=== PATIENT | female | born 1955 | race Caucasian/White ===

== ENCOUNTER → 2016-09-06 | Outpatient (CLI) | payer BC | END | disposition home or self-care (01) | LOC: C.MAMM 13:46 | DX: M85.89 Other specified disorders of bone density and structure, multiple sites (principal) ==

== ENCOUNTER → 2016-09-22 | Outpatient (CLI) | payer BC ==
--- NOTE | 2016-09-22 16:59 | DIAGNOSTIC IMAGING REPORT ---
RIGHT HAND MIN 3 VIEWS ROUTINE CLINICAL HISTORY: Right hand pain. Injury. Pain at base of the third fourth and fifth metacarpophalangeal joints. COMPARISON: None FINDINGS: Alignment of the right hand is anatomic. There is no acute fracture. No osseous lesion is identified. There is mild to moderate osteoarthritis within multiple articulations of the right hand. IMPRESSION: 1. No acute fracture or dislocation of the right hand. 2. 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 Electronically signed by: Yan Love M.D. 09/22/2016 4:58 PM Dictated Date/Time: 09/22/2016 4:57 PM
== END | disposition home or self-care (01) ==
LOC: C.RAD1850 16:37
PROVIDERS: ATTEND Family Medicine
DX: S69.91XA Unspecified injury of right wrist, hand and finger(s), initial encounter (principal); X58.XXXA Exposure to other specified factors, initial encounter; M79.641 Pain in right hand

== ENCOUNTER 2025-01-16 22:02 | Inpatient (IN) ==
--- NOTE | 2025-01-16 22:59 | Emergency Department Note ---
Impression & Plan Abdominal pain Admission ED Provider Note HPI: History obtained from patient. The patient is a 69-year-old female who presents the emergency department with chief complaint of left lower quadrant abdominal pain. Patient had colonoscopy performed earlier this morning by Dr. Canas, she actually came to the ER earlier today for the symptoms, she had a CT scan done that showed possible hemoperitoneum and she was advised for admission. Patient signed out AGAINST MEDICAL ADVICE. Patient states that her symptoms persisted throughout the afternoon into the evening and therefore she came back to the ER to be assessed. Patient states that her pain is mild but just not getting any better. On arrival here to the ED the patient is hemodynamically stable, she otherwise appears to be in no acute distress on my initial assessment. Patient states she did have 1 bowel movement this afternoon but it was "watery". She states there was "some tinge of blood" in her bowel movement. Patient denies any vomiting, she denies any chest pain or shortness of breath. ROS: - Per HPI Differential Diagnosis: Perforated viscus/colon, peritonitis, intra-abdominal hemorrhage/hemoperitoneum, intra-abdominal abscess, diverticulitis flare, amongst other potential pathologies. *Outpatient medications and allergy history reviewed. PE: General: Alert HEENT: Normocephalic, trachea midline Eyes: Extraocular eye movement is intact, no scleral erythema Pulmonary: Clear to auscultation bilaterally, no wheezing Cardio: Regular rate and rhythm GI: Abdomen is soft to palpation, there is tenderness to palpation in the left lower quadrant without rigidity : No suprapubic tenderness MSK: No evidence of trauma or malformation of the extremities, no edema Skin: No evidence of rash Neuro: Alert, no focal deficits Psychiatric: Cooperative INDEPENDENT INTERPRETATIONS: library monitor: (As interpreted by myself): - An order was placed for continuous cardiac monitoring - Patient was noted to be in sinus rhythm with a rate of 70 Interventions provided in ED: - IV fluid bolus, p.o. Tylenol, IV Zosyn Medical Decision Making: IV was established and lab work obtained, patient was placed on conveyor monitor. Lab work shows a normal white blood cell count, hemoglobin is stable at 10.2 (this is in comparison to 10.1 earlier this morning), platelet count is normal, CMP does not show any evidence of any acute abnormalities. There is no evidence of acute kidney injury, troponin is normal. BUN is normal. Lipase is normal. There is no transaminitis. Bilirubin is also normal. KUB x-ray was obtained and shows no evidence of any acute findings. Repeat CT imaging was not performed following my discussion with the patient given her hemodynamic stability and stable hemoglobin. Patient remained otherwise stable while here in the ED. I discussed the patient's repeat presentation today with gastroenterology, Dr. Canas, who did perform her endoscopy earlier today. He states that if the patient's pain is under control she can be discharged home with pain medicine, if not he would be in agreement for consultation if the patient needs to be admitted to the hospital. Patient was held here in the ED for another several hours per her request, on my reassessment she states she is still having some discomfort in the left lower quadrant and requested admission to the hospital. I think this is reasonable given her CT imaging findings from earlier in the day with some continued left lower quadrant discomfort. Routine consultation was placed for gastroenterology, I did discuss the patient's presentation with the on-call hospitalist, Dr. Hammond, and the patient will be placed for admission to the medicine service for further management. Patient was placed for admission in stable condition. Consultants/Discussions held with other healthcare providers: - Gastroenterology, Dr. Canas - Hospitalist, Dr. Hammond Disposition discussion held by myself with: - Patient Diagnosis: 1. Left lower quadrant pain, acute, status post endoscopy 2. 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 TMJ (temporomandibular joint disorder) Otalgia of left ear S/P left rotator cuff repair Rotator cuff tear, left Arthritis H/O bee sting allergy (Acute) Bee sting (Acute) Bee sting (Acute) Medical History Palpitations hx of > no more issues Arthritis History of COVID-26 October 2021 Surgical History History of breast biopsy benign [place] teeth extracted H/O colonoscopy S/P arthroscopy of shoulder (~2014) Rotator cuff surgery > right S/P tonsillectomy Family History Other No family history of adverse response to anesthesia No family history of bleeding disorder Social History Smoking Status: Never smoker Second Hand Exposure: No; Do You Dip or Chew Tobacco: No; Hx Alcohol Use: No Hx Substance Use: No Preferred Language: Ivorian Communication Ability: Effective 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 Beliefs That Will Affect Care: None marital status: Current Living Situation: Spouse current occupational status: retired How many Children do You have: 2 Feels Safe at Home: Yes Diet: vegetarian Diet Comment: Lean meat and fisth during the past year weight has: remained stable Assistive Devices: Glasses Allergies Allergies Allergy/AdvReac Type Severity Reaction Status Date / Time hornet venom Allergy Severe ANAPHYLAXIS, Verified 01/16/25 23:49 hives bee venom protein (honey bee) Allergy Intermediate HIVES, Verified 01/16/25 23:49 YELLOW JACKETS Allergy Severe Anaphylaxis Uncoded 01/16/25 23:49 /Hives Home Meds Home Medications Medication Instructions Recorded Confirmed czhtevyd-vqjb-wfoz 8 mg-folic 400 1 tab PO DAILY 10/07/21 01/16/25 mcg-K 50 mcg-lutein 300 mcg tablet (Multivitamin Women 50 Plus) ascorbic acid (vitamin C) 1,000 mg 1,000 mg PO DAILY PRN WHEN NEEDED 01/16/25 01/16/25 tablet (Vitamin C) epinephrine 0.3 mg/0.3 mL 0.3 mg IM DIRECTED PRN allergic 01/16/25 01/16/25 injection, auto-injector (EpiPen reaction 2-Marc) Results & Data (ED) Vital Signs Vital Signs - 24 hr 01/16/25 22:07 01/16/25 22:32 01/17/25 00:03 Temperature 36.7 C Temperature Source Temporal Artery Scan Pulse Rate 76 Pulse Rate [Apical] 80 73 Pulse Rhythm Regular Pulse Rhythm [Apical] Regular Pulse Strength Normal Pulse Strength [Apical] Normal Respiratory Rate 18 18 16 Respiratory Effort / Characteristics Non-Labored Spontaneous Non-Labored Respiratory Depth Normal Normal Normal Respiratory Pattern Regular Regular Blood Pressure 106/54 L Blood Pressure [Right Arm] 118/70 118/70 Blood Pressure Mean 71 Blood Pressure Mean [Right Arm] 86 86 Blood Pressure Position Sitting Blood Pressure Position [Right Arm] Lying Pulse Oximetry 98 98 98 Oxygen Delivery Method Room Air Room Air Sepsis Recent Fever Within 48 Hours No Sepsis New/Unexplained Change in Mental Status N/A Sepsis Action Taken by Nursing No Action Required 01/17/25 02:00 01/17/25 03:32 Temperature Temperature Source Pulse Rate Pulse Rate [Apical] 77 66 Pulse Rhythm Pulse Rhythm [Apical] Pulse Strength Pulse Strength [Apical] Respiratory Rate 16 Respiratory Effort / Characteristics Non-Labored Respiratory Depth Normal Respiratory Pattern Blood Pressure Blood Pressure [Right Arm] 111/57 L 110/68 Blood Pressure Mean Blood Pressure Mean [Right Arm] 75 82 Blood Pressure Position Blood Pressure Position [Right Arm] Pulse Oximetry 96 Oxygen Delivery Method Room Air Sepsis Recent Fever Within 48 Hours Sepsis New/Unexplained Change in Mental Status Sepsis Action Taken by Nursing Laboratory Data 01/16/25 23:23 01/16/25 23:23 Lab Results 01/16/25 01/16/25 Range/Units 23:03 23:23 WBC 6.88 (4.8-10.8) K/ul RBC 3.28 L (4.20-5.40) M/uL Hgb 10.2 L (12.0-16.0) g/dl Hct 30.2 L (37.0-47.0) % MCV 92.1 (80.0-100.0) fL MCH 31.1 (25.0-34.0) pg MCHC 33.8 (32.0-36.0) g/dL RDW Std Deviation 44.8 (36.4-46.3) fL RDW Coeff of Megan 13.2 (11.5-14.5) % Plt Count 232 (130-400) K/uL MPV 9.0 L (9.4-12.4) fL Immature Gran % (Auto) 0.1 % Neut % (Auto) 57.5 % Lymph % (Auto) 34.3 % Aiken % (Auto) 6.8 % Eos % (Auto) 1.0 % Baso % (Auto) 0.3 % Neut # (Auto) 3.95 (1.40-6.50) K/uL Lymph # (Auto) 2.36 (1.20-3.40) K/uL Aiken # (Auto) 0.47 (0.11-0.59) K/uL Eos # (Auto) 0.07 (0.00-0.50) K/uL Baso # (Auto) 0.02 (0.00-0.20) K/uL Immature Gran # (Auto) 0.01 (0.01-0.20) K/uL PT 10.5 (9.0-12.0) Seconds INR 1.0 (0.9-1.1) Sodium 138 (136-145) mmol/L Potassium 3.8 (3.5-5.1) mmol/L Chloride 106 (98-107) mmol/L Carbon Dioxide 25 (21-32) mmol/L Anion Gap 7 (3-11) BUN 11 (6-23) mg/dl Creatinine 0.78 (0.6-1.2) mg/dl Est Cr Clr Drug Dosing 53.8 ml/min eGFR 82.17 BUN/Creatinine Ratio 14.1 (10-20) Glucose 95 (70-99(Fasting)) mg/dl Calcium 8.7 (8.6-10.3) mg/dl Total Bilirubin 0.4 (0.2-1.0) mg/dl AST 15 (13-39) U/L ALT 10 (7-52) U/L Alkaline Phosphatase 37 (34-104) U/L Troponin I High Sens 3.4 (0-14) pg/ml Total Protein 6.4 (6.0-8.3) gm/dl Albumin 4.0 (3.4-5.0) gm/dl Globulin 2.4 L (2.5-4.0) gm/dl Albumin/Globulin Ratio 1.7 (0.9-2) Lipase 36 (11-82) U/L Blood Type A Positive Antibody Screen NEGATIVE Administered Medications Discontinued Medications Acetaminophen (Acetaminophen 500 Mg Tab) 1,000 mg PO NOW STA Stop: 01/16/25 23:38 Last Admin: 01/16/25 23:42 Dose: 1,000 mg Documented By: Sodium Chloride (Nss) 1,000 mls @ 999 mls/hr IV .Q1H1M STA Stop: 01/16/25 23:50 Last Infusion: 01/17/25 00:46 Dose: Infused Documented By: Admin: 01/16/25 23:35 Dose: 999 mls/hr Documented By: Piperacillin Sod/Tazobactam Sod (Zosyn) 4.5 gm in 100 mls @ 200 mls/hr IV NOW ONE; Protocol Stop: 01/17/25 04:13 Last Admin: 01/17/25 04:28 Dose: 200 mls/hr Documented By: MED Imaging Data Radiologist's Impression: KUB X-Ray 01/16/25 23:00 Exam(s): XR KUB EXAM: XR Abdomen, 1 View CLINICAL HISTORY: Reason for exam: eval for pneumoperitoneum. TECHNIQUE: Frontal view of abdomen/pelvis. COMPARISON: No relevant prior studies available. FINDINGS: Intraperitoneal space: No free air. Gastrointestinal tract: Few colonic diverticuli. Wall contrast is seen within the colon. No dilation. Bones/joints: Unremarkable. No acute fracture. IMPRESSION: No acute findings in the abdomen/pelvis Electronically signed by: Alejo Hubbard MD 01/17/25 00:05 AM Discharge Plan Visit Data Chief Complaint: Abdominal Pain Stated Complaint: LOWER LT ABD PAIN, HERE BEFORE, POSS RUPTURE ED Provider: Oliver Santos Discharge Problem: Abdominal pain Patient Disposition: Admitted As Inpatient Condition: Fair Forms Stand Alone Forms: [facility] Funk[employer] Android Prescriptions Prescriptions: No Action Multivitamin Women 50 Plus 8 mg iron-400 mcg-300 mcg tablet 1 tab PO DAILY ascorbic acid (vitamin C) [Vitamin C] 1,000 mg Tablet 1,000 mg PO DAILY PRN (Reason: WHEN NEEDED ) Rx Instructions: TAKES WHEN "FEELING RUN DOWN". epinephrine [EpiPen 2-Marc] 0.3 mg/0.3 mL auto-injector 0.3 mg IM DIRECTED PRN (Reason: allergic reaction) Rx Instructions: until response Referrals Referrals: Milagros Michaels DO [Primary Care Provider] -
[2025-01-16] MEDS: SODIUM CHLORIDE 0.9% 1,000 ML IV STA (23:35)
[2025-01-16] MEDS: ACETAMINOPHEN 500 MG TAB PO STA (23:42)
[2025-01-16 23:49] LABS: Hematocrit (blood only) 30.2 % (37.0-47.0); Hemoglobin 10.2 g/dl (12.0-16.0); Immature Granulocytes # (auto) 0.01 K/uL (0.01-0.20); Immature Granulocytes % (auto) 0.1 %; Mean Corpuscular Hemoglobin 31.1 pg (25.0-34.0); Mean Corpuscular Volume 92.1 fL (80.0-100.0); Platelet Count 232 K/uL (130-400); RDW Standard Deviation 44.8 fL (36.4-46.3); Red Blood Count 3.28 M/uL (4.20-5.40); White Blood Count 6.88 K/ul (4.8-10.8)
[2025-01-17 00:06] LABS: Alanine Aminotransferase 10.0 U/L (7-52); Albumin Globulin Ratio 1.7 (0.9-2); Albumin Level 4.0 gm/dl (3.4-5.0); Alkaline Phosphatase 37.0 U/L (34-104); Anion Gap 7.0 (3-11); Bilirubin,Total 0.4 mg/dl (0.2-1.0); Blood Urea Nitrogen 11.0 mg/dl (6-23); Calcium 8.7 mg/dl (8.6-10.3); Carbon Dioxide 25.0 mmol/L (21-32); Chloride 106.0 mmol/L (98-107); Creatinine Clr Calc Pharmacy 53.8 ml/min; Globulin 2.4 gm/dl (2.5-4.0); Glucose 95.0 mg/dl (70-99(Fasting)); Lipase 36.0 U/L (11-82); Potassium 3.8 mmol/L (3.5-5.1); Sodium 138.0 mmol/L (136-145); Total Protein 6.4 gm/dl (6.0-8.3)
--- NOTE | 2025-01-17 00:06 | XRay Report ---
Exam(s): XR KUB EXAM: XR Abdomen, 1 View CLINICAL HISTORY: Reason for exam: eval for pneumoperitoneum. TECHNIQUE: Frontal view of abdomen/pelvis. COMPARISON: No relevant prior studies available. FINDINGS: Intraperitoneal space: No free air. Gastrointestinal tract: Few colonic diverticuli. Wall contrast is seen within the colon. No dilation. Bones/joints: Unremarkable. No acute fracture. IMPRESSION: No acute findings in the abdomen/pelvis Electronically signed by: Alejo Hubbard MD 01/17/25 00:05 AM
[2025-01-17 00:22] LABS: INR 1.0 (0.9-1.1); Prothrombin Time 10.5 Seconds (9.0-12.0)
[2025-01-17] MEDS: PIPERACILLIN/TAZOBACTAM 4.5 GM/100 ML BAG IV ONE (04:28)
--- NOTE | 2025-01-17 04:38 | Surgery Consultation ---
Date of Consultation January 17, 2025 Assessment & Plan (1) Hemoperitoneum: At the request of the attending hospitalist, I evaluated the patient in room A3. Surgical recommendation is as follows: It appears as though the patient may have some bleeding along the left side of her mesentery resulting in some hemoperitoneum. This is likely the cause of patient's noted abdominal pain. I believe it is conceivable that this may have resulted from the patient's colonoscopy (it is possible that the mesentery may have some stress placed on it resulting in rupture of perhaps a small blood vessel resulting in noted hemoperitoneum) At this time the patient is noted to be hemodynamically stable (she is normo tensive and not tachycardic). She is perfusing well (she is mentating well and has palpable radial and dorsalis pedis pulses). In addition, the patient has not had any noted drop of her hemoglobin and hematocrit in excess of 12 hours. The attending hospitalist has elected to order a repeat CT angiogram of the abdomen pelvis which will help us ascertain if the patient has any contrast extravasation suggestive of an active bleed. If we do see such findings consideration will have to be given to transferring the patient to a facility where interventional radiology with possible embolization capabilities this available. In the interim, we recommend the following: Maintain n.p.o. status Follow serial hemoglobin and hematocrits every 6 hours at a minimum Provide IV fluid for hydration Provide analgesics Provide antiemetics if needed At the time of my interview I verified with the patient that the patient has had a type and screen and this has been sent At the time of my interview the patient was noted to have only 1 site of intravenous access, and I discussed with the nurses that the patient requires a second IV started immediately The patient does not take any anticoagulants and he should not be started. In addition the patient does note that she occasionally takes rfmr-twt-tjeyfhs aspirin which she took earlier this morning and such medications should also be withheld For DVT prevention would recommend holding against any chemical means and utilizing only SCDs due to concern for potential bleeding intra-abdominal he Additional recommendations will be forthcoming based on her pending CT angiogram and her clinical course as it unfolds History of Present Illness Reason for Consultation: Abdominal pain Hemoperitoneum History of Present Illness This is a 69-year-old female who presented to the emergency department secondary to abdominal pain following a colonoscopy. Patient says that she underwent a colonoscopy secondary to rectal bleeding. The patient reports that in the beginning of December of this year she had some rectal bleeding there is concern that she had diverticular disease. She underwent a CT scan of the abdomen pelvis on 12/17/2024. This did not identify any cause of her rectal bleeding and she was therefore referred for a colonoscopy. She underwent a colonoscopy on the morning of 01/16/2025. Almost immediately after arousing from sedation after her colonoscopy she complained of some sharp left-sided abdominal pain without radiation. She also noted some lightheadedness/dizziness with and was noted to be hypotensive following the procedure so she was referred to the emergency department for further evaluation. She did present to the emergency department on the morning of 01/16/2025. During this visit she underwent a CT scan of the abdomen pelvis with intravenous contrast. This did not demonstrate any pneumoperitoneum suggestive of a bowel perforation. Patient was noted to have an elongated left abdominal fluid collection measuring approximately 11 x 6 x 2.7 cm that was felt to be intraperitoneal along the medial aspect of the descending colon. Interpreting radiologist felt this represented a hematoma without active extravasation. There was concern that this related to an underlying mesenteric injury. There is also moderate amount of hemoperitoneum within the pelvis. The patient did undergo laboratory studies at that time CBC revealed white blood cell count was 4.4. Her hemoglobin and hematocrit were 10.1 and 31.3. Platelet count was normal. Chemistry profile showed sodium and potassium as well as the BUN and creatinine were normal. It was recommended that the patient be admitted for observation but she refused and apparently left AGAINST MEDICAL ADVICE. The patient return to the emergency department the evening of 01/17/2025 due to ongoing left-sided abdominal pain. She describes the pain as sharp in nature without radiation or mitigating factors. She denies any nausea or vomiting. She denies any fevers, shakes, or chills. Patient says that she did have 1 small bowel movement following her colonoscopy which did have a very small amount of blood but has not had any rectal bleeding since. I did asked patient if she takes any anticoagulants which she denied. She does admit to taking ngwe-uqk-qvcscum aspirin from time to time with her most recent aspirin being taken today. She denies any use of Motrin or NSAIDs. I also asked the patient if she knows of any significant findings were noted on her colonoscopy and she says to the best of her knowledge she was told that her colonoscopy was "clean" and no biopsies or polypectomies were performed. The patient also reports that she has never had any prior abdominal surgeries. During this most recent visit in the emergency department she had repeat labs performed. A CBC revealed white blood cell count and platelet count remain normal. Her hemoglobin and hematocrit were 10.2 and 30.2 (this level of hemoglobin and hematocrit did not demonstrate any drop in values checked during her first emergency department visit). A chemistry profile showed sodium and potassium as well as the BUN and creatinine were noted to be within the normal range. She did have an INR checked that was normal at 1.0. Urinalysis was not indicative of infection. She underwent an EKG that showed normal sinus rhythm without changes indicative of acute ischemia. Patient also underwent a KUB x- ray this admission that showed no acute findings in the abdomen or pelvis specifically, no intraperitoneal free air. At the time of my interview the patient was resting comfortably in bed she was in no distress but did have continued left-sided abdominal pain Allergies Allergy/AdvReac Type Severity Reaction Status Date / Time hornet venom Allergy Severe ANAPHYLAXIS, Verified 01/16/25 23:49 hives bee venom protein (honey bee) Allergy Intermediate HIVES, Verified 01/16/25 23:49 YELLOW JACKETS Allergy Severe Anaphylaxis Uncoded 01/16/25 23:49 /Hives Home Medications Medication Instructions Recorded Confirmed Type gkdiyfka-yyce-gydc 8 mg-folic 400 1 tab PO DAILY 10/07/21 01/16/25 History mcg-K 50 mcg-lutein 300 mcg tablet (Multivitamin Women 50 Plus) ascorbic acid (vitamin C) 1,000 mg 1,000 mg PO DAILY PRN WHEN NEEDED 01/16/25 01/16/25 History tablet (Vitamin C) epinephrine 0.3 mg/0.3 mL 0.3 mg IM DIRECTED PRN allergic 01/16/25 01/16/25 History injection, auto-injector (EpiPen reaction 2-Marc) Patient History Medical History Palpitations hx of > no more issues Arthritis History of COVID-26 October 2021 Surgical History History of breast biopsy benign [place] teeth extracted H/O colonoscopy S/P arthroscopy of shoulder (~2014) Rotator cuff surgery > right S/P tonsillectomy Family History Other No family history of adverse response to anesthesia No family history of bleeding disorder Social History Smoking Status: Never smoker Second Hand Exposure: No; Do You Dip or Chew Tobacco: No; Hx Alcohol Use: No Hx Substance Use: No Preferred Language: Sri Lankan Communication Ability: Effective General Matcher Required: No Beliefs That Will Affect Care: None marital status: Current Living Situation: Spouse current occupational status: retired How many Children do You have: 2 Feels Safe at Home: Yes Diet: vegetarian Diet Comment: Lean meat and fisth during the past year weight has: remained stable Assistive Devices: Glasses Review of Systems Review of Systems: All systems reviewed & are unremarkable except as noted in HPI & below Physical Exam Constitutional: WD/WN, vitals as above Eyes: no conjunctival abnormality ENMT: Ears: no hearing impairment and no external ear abnormality Mouth: no oropharynx abnormality Neck: trachea midline Respiratory: normal respiratory effort; no respiratory distress and no labored breathing Cardiovascular: Rate/Rhythm: regular rate and regular rhythm Vessels: dorsalis pedis pulses present and radial pulses present Gastrointestinal (Abdomen): The patient's abdomen is soft and nondistended. It is nonrigid. There is no rebound tenderness but the patient did have significant tenderness with palpation along the left side of her abdomen, specifically the left lower quadrant and left hypogastric regions. Musculoskeletal: No calf tenderness Skin: no rashes Neurologic: moves all extremities Psychiatric: A+Ox3, euthymic affect Results & Data Vital Signs (Past 12 Hours) Vital Signs Temp Pulse Pulse Resp BP BP Pulse Ox 01/17/25 03:32 66 110/68 01/17/25 02:00 77 16 111/57 L 96 01/17/25 00:03 73 16 118/70 98 01/16/25 22:32 80 18 118/70 98 01/16/25 22:07 36.7 C 76 18 106/54 L 98 O2 Del Method 01/17/25 03:32 01/17/25 02:00 Room Air 01/17/25 00:03 01/16/25 22:32 Room Air 01/16/25 22:07 Room Air PG Care Time/CCT Total # of Minutes Spent Total Time Spent with Patient: Total time spent is greater than 50% in coordination of care (as documented) at patient's floor/unit and/or counseling patient: Coding Level of Care Code 72971 INT INP/OBS CARE 3/75MIN Diagnoses Hemoperitoneum K66.1
[2025-01-17] MEDS: OPTIRAY 320 125ml IV ONE (04:54)
--- NOTE | 2025-01-17 05:44 | CT Scan Report ---
EXAM: CT angio abdomen pelvis w con CLINICAL HISTORY: hemoperitoneum post colonoscopy on CT done 01/16 TECHNIQUE: Contrast-enhanced thin-slice CT angiography scan of the abdominal aorta was performed with intravenous contrast. Angiographic images were processed, and 3D MIP images were acquired for interpretation. Contiguous axial images were obtained. Reformatted coronal and sagittal images were also reviewed. If intravenous contrast material had not been administered, the likelihood of detecting abnormalities relevant to the patient's condition would have been substantially decreased. The CT scan was performed according to ALARA (as low as reasonably achievable) principles. 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 FINDINGS: Slightly hyperattenuating fluid collection (HU around 40) is noted involving the bilateral paracolic gutters and in the pelvis, predominantly in the pouch of Freddy, suggestive of hemoperitoneum. Diffuse atherosclerotic calcification is noted involving the aorta and iliac arteries. The abdominal aorta is normal in course, calibre, and opacification. The origins of the coeliac artery, superior mesenteric artery, bilateral main renal, and lumbar arteries are normal, with no hemodynamically significant ostial stenosis noted. Bilateral common, external, and internal iliac arteries are normal in course, calibre, and opacification. Solid abdominal organs including the liver, spleen, pancreas, and bilateral kidneys reveal no significant abnormality. Bowel loops are grossly unremarkable. No evidence of ascites. IMPRESSION: Slightly hyperattenuating fluid collection (HU around 40) is noted involving the bilateral paracolic gutters and in the pelvis, predominantly in the pouch of Freddy, suggestive of hemoperitoneum. New finding. Diffuse atherosclerotic calcification is noted involving the aorta and iliac arteries. Stable. No obvious extravasation of contrast or active bleed is seen. Electronically signed by Adarsh Garcia 01-17-2025 05:44 AM
--- NOTE | 2025-01-17 06:25 | Hospitalist Consultation ---
Date of Consultation January 17, 2025 History of Present Illness Allergies Allergy/AdvReac Type Severity Reaction Status Date / Time hornet venom Allergy Severe ANAPHYLAXIS, Verified 01/16/25 23:49 hives bee venom protein (honey bee) Allergy Intermediate HIVES, Verified 01/16/25 23:49 YELLOW JACKETS Allergy Severe Anaphylaxis Uncoded 01/16/25 23:49 /Hives Home Medications Medication Instructions Recorded Confirmed Type [id number] 8 mg-folic 400 1 tab PO DAILY 10/07/21 01/16/25 History mcg-K 50 mcg-lutein 300 mcg tablet (Multivitamin Women 50 Plus) ascorbic acid (vitamin C) 1,000 mg 1,000 mg PO DAILY PRN WHEN NEEDED 01/16/25 01/16/25 History tablet (Vitamin C) epinephrine 0.3 mg/0.3 mL 0.3 mg IM DIRECTED PRN allergic 01/16/25 01/16/25 History injection, auto-injector (EpiPen reaction 2-Marc) Patient History Medical History Palpitations hx of > no more issues Arthritis History of COVID-26 October 2021 Surgical History History of breast biopsy benign [place] teeth extracted H/O colonoscopy S/P arthroscopy of shoulder (~2014) Rotator cuff surgery > right S/P tonsillectomy Family History Other No family history of adverse response to anesthesia No family history of bleeding disorder Social History Smoking Status: Never smoker Second Hand Exposure: No; Do You Dip or Chew Tobacco: No; Hx Alcohol Use: No Hx Substance Use: No Preferred Language: Kazakh Communication Ability: Effective Electro Mechanical Technologist Required: No Beliefs That Will Affect Care: None marital status: Current Living Situation: Spouse current occupational status: retired How many Children do You have: 2 Feels Safe at Home: Yes Diet: vegetarian Diet Comment: Lean meat and fisth during the past year weight has: remained stable Assistive Devices: Glasses Results & Data Results & Data Vital Signs (Past 12 Hours) Vital Signs Temp Pulse Pulse Resp BP BP Pulse Ox 01/17/25 05:10 64 01/17/25 05:00 65 19 114/62 96 01/17/25 03:32 66 110/68 01/17/25 02:00 77 16 111/57 L 96 01/17/25 00:03 73 16 118/70 98 01/16/25 22:32 80 18 118/70 98 01/16/25 22:07 36.7 C 76 18 106/54 L 98 O2 Del Method 01/17/25 05:10 01/17/25 05:00 Room Air 01/17/25 03:32 01/17/25 02:00 Room Air 01/17/25 00:03 01/16/25 22:32 Room Air 01/16/25 22:07 Room Air PG Care Time/CCT Total # of Minutes Spent Total Time Spent with Patient: Total time spent is greater than 50% in coordination of care (as documented) at patient's floor/unit and/or counseling patient: Coding
--- NOTE | 2025-01-17 06:30 | History & Physical Report ---
Date of Service January 17, 2025 Assessment & Plan (1) Hemoperitoneum: (2) Abdominal pain: Plan The patient is a 69-year-old female with a past medical history including TMJ arthritis, left rotator cuff tear, and history of allergic reaction.The patient is a 69-year-old female underwent colonoscopy earlier in the morning on 01/16. She reports that when she awoke from the procedure she had significant left lower quadrant pain, and was told the emergency department for evaluation. At that visit she had a CT scanning of abdomen pelvis which showed a small to moderate hemoperitoneum with source most likely in the left mid colon. She reports that at that time it was recommended that she be admitted, however, she felt that if the only process that was going to be done would be to check her blood counts, that she would go home and rest. She therefore was discharged AGAINST MEDICAL ADVICE. Throughout the day on 01/16, the patient continued to have pain, which became slowly more intense and she had more of a sense of fullness develop in the left side and left lower pelvis area. Due to worsening symptoms she presented to the emergency department on the evening of 01/16 and morning of 01/17. She was ordered a KUB by the emergency department, which showed no significant issues. She had laboratories performed that showed stable hemoglobin of 10.2, which had been 10.1 earlier in the morning. She appeared very dehydrated in the ED this evening, likely her hemoglobin is more hemoconcentrated, and is likely lower than 10.2. Her baseline hemoglobin was 11.8 on 01/05/2025. From the ED she received a 1 L normal saline bolus, and Tylenol 1 g p.o. I advised that she be placed on Zosyn 4.5 g IV while additional workup could be performed due to the persistence and intensification of her left lower quadrant discomfort. Hemoperitoneum/status post colonoscopy/anemia- Initial CT scan of abdomen pelvis performed 01/16 notes 11 x 6.6 x 2.7 cm elongated left abdominal hyperdense fluid collection, likely intraperitoneal, located along the medial aspect of the descending colon. This represents a hematoma without seen active extravasation. Although nonspecific, this could be related to underlying mesenteric injury given the location. Moderate amount of hemoperitoneum within the pelvis. Overall small to moderate hemoperitoneum within the abdomen and pelvis. Source most likely within the left mid abdomen. CTA of abdomen pelvis performed in the morning of 01/17 showed a slightly hyperattenuating fluid collection involving the bilateral paracolic gutters and in the pelvis, predominantly in the pouch of Freddy, suggestive of hemoperitoneum. New finding. Diffuse atherosclerotic calcifications noted involving the aorta and iliac arteries. Stable. No obvious extravasation of contrast or active bleed seen. Unfortunately, does not appear that the second radiologist compared the follow- up CTA of abdomen to the initial CT scan. Will ask [facility] radiologist to compare and comment. NPO Zosyn 4.5 g IV every 8 hours Zofran 4 mg IV every 6 hours as needed Pantoprazole 40 mg IV every morning Acetaminophen 1 g IV every 8 hours as needed for mild pain or fever Morphine sulfate 2 mg IV every 3 hours as needed for moderate pain Morphine sulfate 4 mg IV every 3 hours as needed for severe pain NSS + KCl 20 mEq at 100 mL/h Follow results of blood culture and sensitivities Serial CBC with differential, chemistry profile, magnesium, PT/INR/PTT General surgery saw the patient in the emergency department and will continue to follow Gastroenterology has been consulted by the emergency department. History of Present Illness Chief Complaint: The patient is a 69-year-old female who underwent colonoscopy earlier in the morning on 01/16. She reports that when she awoke from the procedure she had significant left lower quadrant pain, and was told the emergency department for evaluation. At that visit she had a CT scanning of abdomen pelvis which showed a small to moderate hemoperitoneum with source most likely in the left mid colon. She reports that at that time it was recommended that she be admitted, however, she felt that if the only process that was going to be done would be to check her blood counts, that she would go home and rest. She therefore was discharged AGAINST MEDICAL ADVICE. Throughout the day on 01/16, the patient continued to have pain, which became slowly more intense and she had more of a sense of fullness develop in the left side and left lower pelvis area. Due to worsening symptoms she presented to the emergency department on the evening of 01/16 and morning of 01/17. She was ordered a KUB by the emergency department, which showed no significant issues. She had laboratories performed that showed stable hemoglobin of 10.2, which had been 10.1 earlier in the morning. She appears very dehydrated in the ED this evening, likely her hemoglobin is more hemoconcentrated, and is likely lower at 10.2. Her baseline hemoglobin was 11.8 on 01/05/2025. From the ED she received a 1 L normal saline bolus, Tylenol 1 g p.o. I advised that she be placed on Zosyn 4.5 g IV while additional workup could be performed due to the persistence and intensification of her left lower quadrant discomfort. Primary Care Provider: Milagros Michaels DO The patient is a 69-year-old female with a past medical history including TMJ arthritis, left rotator cuff tear, and history of allergic reaction.The patient is a 69-year-old female underwent colonoscopy earlier in the morning on 01/16. She reports that when she awoke from the procedure she had significant left lower quadrant pain, and was told the emergency department for evaluation. At that visit she had a CT scanning of abdomen pelvis which showed a small to moderate hemoperitoneum with source most likely in the left mid colon. She reports that at that time it was recommended that she be admitted, however, she felt that if the only process that was going to be done would be to check her blood counts, that she would go home and rest. She therefore was discharged AGAINST MEDICAL ADVICE. Throughout the day on 01/16, the patient continued to have pain, which became slowly more intense and she had more of a sense of fullness develop in the left side and left lower pelvis area. Due to worsening symptoms she presented to the emergency department on the evening of 01/16 and morning of 01/17. She was ordered a KUB by the emergency department, which showed no significant issues. She had laboratories performed that showed stable hemoglobin of 10.2, which had been 10.1 earlier in the morning. She appears very dehydrated in the ED this evening, likely her hemoglobin is more hemoconcentrated, and is likely lower at 10.2. Her baseline hemoglobin was 11.8 on 01/05/2025. From the ED she received a 1 L normal saline bolus, Tylenol 1 g p.o. I advised that she be placed on Zosyn 4.5 g IV while additional workup could be performed due to the persistence and intensification of her left lower quadrant discomfort. Allergies Allergy/AdvReac Type Severity Reaction Status Date / Time hornet venom Allergy Severe ANAPHYLAXIS, Verified 01/16/25 23:49 hives bee venom protein (honey bee) Allergy Intermediate HIVES Verified 01/17/25 14:45 (YELLOW JACKETS) Home Medications Medication Instructions Recorded Confirmed Type pcgjwspr-azkj-rgnf 8 mg-folic 400 1 tab PO DAILY 10/07/21 01/16/25 History mcg-K 50 mcg-lutein 300 mcg tablet (Multivitamin Women 50 Plus) ascorbic acid (vitamin C) 1,000 mg 1,000 mg PO DAILY PRN WHEN NEEDED 01/16/25 01/16/25 History tablet (Vitamin C) epinephrine 0.3 mg/0.3 mL 0.3 mg IM DIRECTED PRN allergic 01/16/25 01/16/25 History injection, auto-injector (EpiPen reaction 2-Marc) Past Med/Surg History Problem List Abdominal pain (Acute) Hemoperitoneum (Acute) Allergic reaction (Acute) Anterior displacement of meniscus of temporomandibular joint Centric occlusion of teeth discrepancy TMJ arthritis TMJ (temporomandibular joint disorder) Otalgia of left ear S/P left rotator cuff repair Rotator cuff tear, left Arthritis H/O bee sting allergy (Acute) Bee sting (Acute) Bee sting (Acute) Medical History Palpitations hx of > no more issues Arthritis History of COVID-26 October 2021 Surgical History History of breast biopsy benign [place] teeth extracted H/O colonoscopy S/P arthroscopy of shoulder (~2014) Rotator cuff surgery > right S/P tonsillectomy Family History Other No family history of adverse response to anesthesia No family history of bleeding disorder Social History Smoking Status: Never smoker Second Hand Exposure: No; Do You Dip or Chew Tobacco: No; Tobacco Cessation Education Requested by Patient: No Hx Alcohol Use: No Hx Substance Use: No Preferred Language: Eritrean Communication Ability: Effective Relay Dispatcher Required: No Beliefs That Will Affect Care: None marital status: Current Living Situation: Spouse current occupational status: retired How many Children do You have: 2 Other Information That Helps Us Care for You: No Feels Safe at Home: Yes Safety Concerns: Feels Safe At This Time Diet: vegetarian Diet Comment: Lean meat and fisth during the past year weight has: remained stable Assistive Devices: Glasses Review of Systems Review of Systems: The patient denies chest pain, palpitations, shortness of breath, dyspnea on exertion, cough, lower extremity swelling, sore throat, fevers, chills, sweats, vomiting, diarrhea, blood in urine or stool, dysuria, urinary frequency or urgency, lightheadedness, dizziness, headache, memory loss, loss of consciousness, rash, abnormal bruising or bleeding, imbalance, focal weakness, numbness or tingling in arms or legs, generalized arthralgias or myalgias, neck pain, or night sweats. The review of systems is otherwise negative other than for that already noted above, and at least 10 systems have been reviewed. Physical Exam Physical Exam: The patient is awake, alert and oriented 3, well developed and well nourished, normocephalic and atraumatic, lying in bed and in mild to moderate distress. HEENT--PERRL, EOMI, mucous membranes and oropharynx mildly dry. Neck--supple. No JVD. No bruits. Thyroid normal, trachea midline, no adenopathy. Heart--normal S1 and S2. No murmurs, rubs or gallops. Lungs--clear bilaterally, no respiratory distress, no accessory muscle use. Abdomen--normal bowel sounds and soft. Mildly distended and tympanitic. Tender left lower quadrant. Extremities--no cyanosis or clubbing. No edema. There are good distal pulses b/l. Dermatologic--normal skin turgor, normal color, no abnormal lymph nodes, no rash. Neurologic--cranial nerves II through XII grossly intact. Rheumatologic--normal range of motion. Psychiatric--normal affect. Results & Data Results & Data Vital Signs (Past 12 Hours) Vital Signs Temp Pulse Pulse Resp BP BP Pulse Ox 01/17/25 05:10 64 01/17/25 05:00 65 19 114/62 96 01/17/25 03:32 66 110/68 01/17/25 02:00 77 16 111/57 L 96 01/17/25 00:03 73 16 118/70 98 01/16/25 22:32 80 18 118/70 98 01/16/25 22:07 36.7 C 76 18 106/54 L 98 O2 Del Method 01/17/25 05:10 01/17/25 05:00 Room Air 01/17/25 03:32 01/17/25 02:00 Room Air 01/17/25 00:03 01/16/25 22:32 Room Air 01/16/25 22:07 Room Air Laboratory Results Laboratory Results WBC 6.88 K/ul (4.8-10.8) 01/16/25 23:23 RBC 3.28 M/uL (4.20-5.40) L 01/16/25 23:23 Hgb 10.2 g/dl (12.0-16.0) L 01/16/25 23:23 Hct 30.2 % (37.0-47.0) L 01/16/25 23:23 MCV 92.1 fL (80.0-100.0) 01/16/25 23:23 MCH 31.1 pg (25.0-34.0) 01/16/25 23:23 MCHC 33.8 g/dL (32.0-36.0) 01/16/25 23:23 RDW Std Deviation 44.8 fL (36.4-46.3) 01/16/25 23:23 RDW Coeff of Megan 13.2 % (11.5-14.5) 01/16/25 23:23 Plt Count 232 K/uL (130-400) 01/16/25 23:23 MPV 9.0 fL (9.4-12.4) L 01/16/25 23:23 Immature Gran % (Auto) 0.1 % 01/16/25 23:23 Neut % (Auto) 57.5 % 01/16/25 23:23 Lymph % (Auto) 34.3 % 01/16/25 23:23 [place] % (Auto) 6.8 % 01/16/25 23:23 Eos % (Auto) 1.0 % 01/16/25 23:23 Baso % (Auto) 0.3 % 01/16/25 23:23 Neut # (Auto) 3.95 K/uL (1.40-6.50) 01/16/25 23:23 Lymph # (Auto) 2.36 K/uL (1.20-3.40) 01/16/25 23:23 [place] # (Auto) 0.47 K/uL (0.11-0.59) 01/16/25 23:23 Eos # (Auto) 0.07 K/uL (0.00-0.50) 01/16/25 23:23 Baso # (Auto) 0.02 K/uL (0.00-0.20) 01/16/25 23:23 Immature Gran # (Auto) 0.01 K/uL (0.01-0.20) 01/16/25 23:23 PT 10.5 Seconds (9.0-12.0) 01/16/25 23:23 INR 1.0 (0.9-1.1) 01/16/25 23:23 Sodium 138 mmol/L (136-145) 01/16/25 23:23 Potassium 3.8 mmol/L (3.5-5.1) 01/16/25 23:23 Chloride 106 mmol/L (98-107) 01/16/25 23:23 Carbon Dioxide 25 mmol/L (21-32) 01/16/25 23:23 Anion Gap 7 (3-11) 01/16/25 23:23 BUN 11 mg/dl (6-23) 01/16/25 23:23 Creatinine 0.78 mg/dl (0.6-1.2) 01/16/25 23:23 Est Cr Clr Drug Dosing 53.8 ml/min 01/16/25 23:23 eGFR 82.17 01/16/25 23:23 BUN/Creatinine Ratio 14.1 (10-20) 01/16/25 23:23 Glucose 95 mg/dl (70-99(Fasting)) 01/16/25 23:23 Calcium 8.7 mg/dl (8.6-10.3) 01/16/25 23:23 Total Bilirubin 0.4 mg/dl (0.2-1.0) 01/16/25 23:23 AST 15 U/L (13-39) 01/16/25 23:23 ALT 10 U/L (7-52) 01/16/25 23:23 Alkaline Phosphatase 37 U/L (34-104) 01/16/25 23:23 Troponin I High Sens 3.4 pg/ml (0-14) 01/16/25 23:23 Total Protein 6.4 gm/dl (6.0-8.3) 01/16/25 23:23 Albumin 4.0 gm/dl (3.4-5.0) 01/16/25 23:23 Globulin 2.4 gm/dl (2.5-4.0) L 01/16/25 23:23 Albumin/Globulin Ratio 1.7 (0.9-2) 01/16/25 23:23 Lipase 36 U/L (11-82) 01/16/25 23:23 Blood Type A Positive 01/16/25 23:03 Antibody Screen NEGATIVE 01/16/25 23:03 Impressions KUB X-Ray 01/16/25 23:00 Exam(s): XR KUB EXAM: XR Abdomen, 1 View CLINICAL HISTORY: Reason for exam: eval for pneumoperitoneum. TECHNIQUE: Frontal view of abdomen/pelvis. COMPARISON: No relevant prior studies available. FINDINGS: Intraperitoneal space: No free air. Gastrointestinal tract: Few colonic diverticuli. Wall contrast is seen within the colon. No dilation. Bones/joints: Unremarkable. No acute fracture. IMPRESSION: No acute findings in the abdomen/pelvis Electronically signed by: Alejo Hubbard MD 01/17/25 00:05 AM Abdomen/Pelvis CTA 01/17/25 04:10 EXAM: CT angio abdomen pelvis w con CLINICAL HISTORY: hemoperitoneum post colonoscopy on CT done 01/16 TECHNIQUE: Contrast-enhanced thin-slice CT angiography scan of the abdominal aorta was performed with intravenous contrast. Angiographic images were processed, and 3D MIP images were acquired for interpretation. Contiguous axial images were obtained. Reformatted coronal and sagittal images were also reviewed. If intravenous contrast material had not been administered, the likelihood of detecting abnormalities relevant to the patient's condition would have been substantially decreased. The CT scan was performed according to ALARA (as low as reasonably achievable) principles. 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 FINDINGS: Slightly hyperattenuating fluid collection (HU around 40) is noted involving the bilateral paracolic gutters and in the pelvis, predominantly in the pouch of Freddy, suggestive of hemoperitoneum. Diffuse atherosclerotic calcification is noted involving the aorta and iliac arteries. The abdominal aorta is normal in course, calibre, and opacification. The origins of the coeliac artery, superior mesenteric artery, bilateral main renal, and lumbar arteries are normal, with no hemodynamically significant ostial stenosis noted. Bilateral common, external, and internal iliac arteries are normal in course, calibre, and opacification. Solid abdominal organs including the liver, spleen, pancreas, and bilateral kidneys reveal no significant abnormality. Bowel loops are grossly unremarkable. No evidence of ascites. IMPRESSION: Slightly hyperattenuating fluid collection (HU around 40) is noted involving the bilateral paracolic gutters and in the pelvis, predominantly in the pouch of Freddy, suggestive of hemoperitoneum. New finding. Diffuse atherosclerotic calcification is noted involving the aorta and iliac arteries. Stable. No obvious extravasation of contrast or active bleed is seen. Electronically signed by Adarsh Garcia 01-17-2025 05:44 AM Code Status & VTE Plan Code Status Full code PG Care Time/CCT Total # of Minutes Spent Total Time Spent with Patient: Total time spent is greater than 50% in coordination of care (as documented) at patient's floor/unit and/or counseling patient: Prolonged Care Time Total of 105 minutes was spent on this patient, interacting with general surgery, emergency department, and examination and discussions with patient. Coding Level of Care Code 80279 INT INP/OBS CARE 3/75MIN Diagnoses Hemoperitoneum K66.1 Abdominal pain R10.9
[2025-01-17] MEDS: NSS + 20MEQ KCL 20 MEQ/1,000 ML BAG IV SCH (06:31)
[2025-01-17] MEDS ORDERED: MoRPHine SULFATE 2 MG/ML CARP IV PRN (07:20)
[2025-01-17] MEDS ORDERED: MoRPHine SULFATE 4 MG/ML 1 ML CARP\\VIAL IV PRN ×2 (07:20→14:44)
[2025-01-17] MEDS ORDERED: PIPERACILLIN/TAZOBACTAM 4.5 GM/100 ML BAG IV SCH ×2 (08:30→19:00)
--- NOTE | 2025-01-17 08:31 | Hospitalist Progress Note ---
Date of Service January 17, 2025 Assessment & Plan (1) Hemoperitoneum: Plan The patient is a 69-year-old female with a past medical history including TMJ arthritis, left rotator cuff tear, and history of allergic reaction.The patient is a 69-year-old female underwent colonoscopy earlier in the morning on 01/16. She reports that when she awoke from the procedure she had significant left lower quadrant pain, and was told the emergency department for evaluation. At that visit she had a CT scanning of abdomen pelvis which showed a small to moderate hemoperitoneum with source most likely in the left mid colon. She reports that at that time it was recommended that she be admitted, however, she felt that if the only process that was going to be done would be to check her blood counts, that she would go home and rest. She therefore was discharged AGAINST MEDICAL ADVICE. Throughout the day on 01/16, the patient continued to have pain, which became slowly more intense and she had more of a sense of fullness develop in the left side and left lower pelvis area. Due to worsening symptoms she presented to the emergency department on the evening of 01/16 and morning of 01/17. She was ordered a KUB by the emergency department, which showed no significant issues. She had laboratories performed that showed stable hemoglobin of 10.2, which had been 10.1 earlier in the morning. She appeared very dehydrated in the ED this evening, likely her hemoglobin is more hemoconcentrated, and is likely lower than 10.2. Her baseline hemoglobin was 11.8 on 01/05/2025. From the ED she received a 1 L normal saline bolus, and Tylenol 1 g p.o. she was placed on empiric Zosyn pending reevaluation, and follow-up CTs were ordered which did not show active extravasation/evidence of perforation or free air but which did show intraperitoneal hematoma. Hemoperitoneum/status post colonoscopy/anemia- - CTA/P 01/16L 11 x 6.6 x 2.7 cm elongated left abdominal hyperdense fluid collection, likely intraperitoneal, located along the medial aspect of the descending colon. This represents a hematoma without seen active extravasation. Although nonspecific, this could be related to underlying mesenteric injury given the location. Moderate amount of hemoperitoneum within the pelvis. Overall small to moderate hemoperitoneum within the abdomen and pelvis. Source most likely within the left mid abdomen. -CTA-A/P 01/17: Slghtly hyperattenuating fluid collection involving the bilateral paracolic gutters and in the pelvis, predominantly in the pouch of Freddy, suggestive of hemoperitoneum. New finding. Diffuse atherosclerotic calcifications noted involving the aorta and iliac arteries. Stable. No - obvious extravasation of contrast or active bleed seen. Pending comparison to initial CT scan She did receive contrast with her initial CT scan. No evidence of bowel perforation/free air. Zosyn discontinued. She does not show signs of an acute abdomen at reassessment Tylenol 1 g every 8 hours, breakthrough morphine for pain NSS+ KCl 100 cc/h BC pending. She does not appear febrile or toxic [facility] No polyp removal, otherwise uncomplicated at the time. No active extravasation on CT scan repeat She is not tachycardic Will trend H&H to ensure that this is stable/uptrending. If no recurrent pain, hemoglobin stable/uptrending, hemodynamically stable can possibly progress home when stable and should have gradually improving pain as blood is resorb. Otherwise and if there is concern for any active or intermittent ongoing bleed is recommended for transfer for IR evaluation at that time. If hemoglobin is stable/uptrending can advance to clears Surgery consulted and following. No indication for surgical intervention at this time. Will continue to follow. Appreciate recommendations GI consulted and following. H&H every 6 hours x 3 pending. On reassessment she remains with a normal heart rate and no acute distress. Blood pressure intermittently low-normal, she is not on any negative chronotrops or antihypertensives. DVT prophylaxis: Pharmacoprophylaxis contraindicated in the setting of acute bleed. SCDs CODE STATUS: Full code Subjective Heather is seen at the bedside this morning. Seen with surgery at time of bedside visit. She reports that her pain actually feels much better than it did yesterday, although still with some pain to palpation on the left side. She has not had fevers chills or sweats. She does feel her pain is slowly improving and she is passing gas. Notes her daughter is at a 4-hour time difference and lives in [place], but would like her [id number] Dina contacted with an update at [phone] when available. Somewhat disheartened to stay in the hospital but is agreeing to stay in the hospital until tomorrow for hemoglobin monitoring given hemoglobin dropped to 10.2-8.6, although this may also be from hemoconcentration and initial resuscitation. CT did not show active extravasation Physical Exam Physical Exam: General: A&Ox3. NAD. Cooperative. HEENT: Atraumatic, normocephalic. Vision and hearing grossly intact Pulm: CTAB A&P. -wheezes, -rales, -rhonchi. Symmetrical chest rise. No increase in work of breathing. No respiratory distress. Cardiac: RRR, -mrg. Radial pulses intact and symmetrical. Abdominal: Mildly tender to palpation in the left lower quadrant, otherwise soft and nontender. No rebound/guarding. Abdomen is not rigid. Results & Data Results & Data Vital Signs (Past 12 Hours) Vital Signs Temp Pulse Pulse Resp BP BP Pulse Ox 01/17/25 06:57 63 18 114/67 97 01/17/25 05:10 64 01/17/25 05:00 65 19 114/62 96 01/17/25 03:32 66 110/68 01/17/25 02:00 77 16 111/57 L 96 01/17/25 00:03 73 16 118/70 98 01/16/25 22:32 80 18 118/70 98 01/16/25 22:07 36.7 C 76 18 106/54 L 98 O2 Del Method 01/17/25 06:57 Room Air 01/17/25 05:10 01/17/25 05:00 Room Air 01/17/25 03:32 01/17/25 02:00 Room Air 01/17/25 00:03 01/16/25 22:32 Room Air 01/16/25 22:07 Room Air PG Care Time/CCT Total # of Minutes Spent Total Time Spent with Patient: Total time spent is greater than 50% in coordination of care (as documented) at patient's floor/unit and/or counseling patient: Coding Level of Care Code 55218 SUB INP/OBS CARE 3/50MIN Diagnoses Hemoperitoneum K66.1
[2025-01-17 10:11] LABS: Hematocrit (blood only) 27.0 % (37.0-47.0); Hemoglobin 8.6 g/dl (12.0-16.0)
[2025-01-17 10:22] LABS: Anion Gap 5.0 (3-11); Blood Urea Nitrogen 7.0 mg/dl (6-23); Calcium 8.3 mg/dl (8.6-10.3); Carbon Dioxide 24.0 mmol/L (21-32); Chloride 109.0 mmol/L (98-107); Creatinine Clr Calc Pharmacy 56.7 ml/min; Glucose 89.0 mg/dl (70-99(Fasting)); Potassium 4.2 mmol/L (3.5-5.1); Sodium 138.0 mmol/L (136-145)
[2025-01-17] MEDS ORDERED: ACETAMINOPHEN 1000 MG/100 ML IV IV PRN (11:13)
[2025-01-17] MEDS ORDERED: ONDANSETRON INJ 2 MG/ML 2 ML VIAL IV PRN (11:13)
--- NOTE | 2025-01-17 11:47 | Surgery Progress Note ---
Date of Service January 17, 2025 Assessment & Plan (1) Abdominal pain: (2) Hemoperitoneum: Plan hgb down to 8.6 from 10.2 (has had 1100cc input and likely was hemoconcentrated initially) hemodynamically stable abdomen is distended mildly but soft, tenderness in left upper and lower abdomen without rigidity, rebound or peritonitis Plan: Clear liquids continue pain management as needed okay to ambulate serial H&H q 6 h if Hemoglobin continues to drop she would require transfer to tertiary center for IR embolization Continue medical management Discussed with Dr. Scales who agrees with above. Admission and Anticipated Discharge Date Admission Date: January 17, 2025 Subjective "feeling scared" abdomen feels less bloated passing gas, able to urinate no fevers or chills no lightheadedness or dizziness no chest pain or shortness of breath had liquid bowel movement without any blood able to urinate without difficulty Review of Systems Review of Systems: All systems reviewed & are unremarkable except as noted in HPI & below Physical Exam Constitutional: WD/WN, vitals as above cooperative and comfortable; no acute distress and not ill appearing Respiratory: normal respiratory effort; no respiratory distress, no labored breathing and no retractions Cardiovascular: Rate/Rhythm: regular rate and regular rhythm Gastrointestinal (Abdomen): Inspection/Auscultation: + abdomen distended (mild); no abdominal wall ecchymosis Percussion/Palpation: + abdomen tender (Left lateral abdomen) and abdomen soft; no guarding, abdomen not rigid and abdomen not firm no peritonitis Skin: no rashes, warm and dry Psychiatric: Orientation: alert and oriented x 3 Results & Data Vital Signs (Past 12 Hours) Vital Signs Pulse Pulse Resp BP BP Pulse Ox O2 Del Method 01/17/25 10:26 71 16 130/87 99 Room Air 01/17/25 09:50 65 16 132/68 99 Room Air 01/17/25 08:00 63 18 134/79 98 Room Air 01/17/25 06:57 63 18 114/67 97 Room Air 01/17/25 05:10 64 01/17/25 05:00 65 19 114/62 96 Room Air 01/17/25 03:32 66 110/68 01/17/25 02:00 77 16 111/57 L 96 Room Air 01/17/25 00:03 73 16 118/70 98 Laboratory Results 01/17/25 01/16/2501/16/25 Range/Units 09:43 23:23 23:03 WBC 6.88 (4.8-10.8) K/ul RBC 3.28 L (4.20-5.40) M/uL Hgb 8.6 L 10.2 L (12.0-16.0) g/dl Hct 27.0 L 30.2 L (37.0-47.0) % MCV 92.1 (80.0-100.0) fL MCH 31.1 (25.0-34.0) pg MCHC 33.8 (32.0-36.0) g/dL RDW Std Deviation 44.8 (36.4-46.3) fL RDW Coeff of Megan 13.2 (11.5-14.5) % Plt Count 232 (130-400) K/uL MPV 9.0 L (9.4-12.4) fL Immature Gran % (Auto) 0.1 % Neut % (Auto) 57.5 % Lymph % (Auto) 34.3 % [place] % (Auto) 6.8 % Eos % (Auto) 1.0 % Baso % (Auto) 0.3 % Neut # (Auto) 3.95 (1.40-6.50) K/uL Lymph # (Auto) 2.36 (1.20-3.40) K/uL [place] # (Auto) 0.47 (0.11-0.59) K/uL Eos # (Auto) 0.07 (0.00-0.50) K/uL Baso # (Auto) 0.02 (0.00-0.20) K/uL Immature Gran # (Auto) 0.01 (0.01-0.20) K/uL PT 10.5 (9.0-12.0) Seconds INR 1.0 (0.9-1.1) Sodium 138 138 (136-145) mmol/L Potassium 4.2 3.8 (3.5-5.1) mmol/L Chloride 109 H 106 (98-107) mmol/L Carbon Dioxide 24 25 (21-32) mmol/L Anion Gap 5 7 (3-11) BUN 7 11 (6-23) mg/dl Creatinine 0.74 0.78 (0.6-1.2) mg/dl Est Cr Clr Drug Dosing 56.7 53.8 ml/min eGFR 87.53 82.17 BUN/Creatinine Ratio 9.5 L 14.1 (10-20) Glucose 89 95 (70-99(Fasting)) mg/dl Calcium 8.3 L 8.7 (8.6-10.3) mg/dl Total Bilirubin 0.4 (0.2-1.0) mg/dl AST 15 (13-39) U/L ALT 10 (7-52) U/L Alkaline Phosphatase 37 (34-104) U/L Troponin I High Sens 3.4 (0-14) pg/ml Total Protein 6.4 (6.0-8.3) gm/dl Albumin 4.0 (3.4-5.0) gm/dl Globulin 2.4 L (2.5-4.0) gm/dl Albumin/Globulin Ratio 1.7 (0.9-2) Lipase 36 (11-82) U/L Blood Type A Positive Antibody Screen NEGATIVE Diagnostic Findings EXAM: CT angio abdomen pelvis w con CLINICAL HISTORY: hemoperitoneum post colonoscopy on CT done 01/16 TECHNIQUE: Contrast-enhanced thin-slice CT angiography scan of the abdominal aorta was performed with intravenous contrast. Angiographic images were processed, and 3D MIP images were acquired for interpretation. Contiguous axial images were obtained. Reformatted coronal and sagittal images were also reviewed. If intravenous contrast material had not been administered, the likelihood of detecting abnormalities relevant to the patient's condition would have been substantially decreased. The CT scan was performed according to ALARA (as low as reasonably achievable) principles. COMPARISON: 14:01:12 MANAGER PEST. FINDINGS: Slightly hyperattenuating fluid collection (HU around 40) is noted involving the bilateral paracolic gutters and in the pelvis, predominantly in the pouch of Freddy, suggestive of hemoperitoneum. Diffuse atherosclerotic calcification is noted involving the aorta and iliac arteries. The abdominal aorta is normal in course, calibre, and opacification. The origins of the coeliac artery, superior mesenteric artery, bilateral main renal, and lumbar arteries are normal, with no hemodynamically significant ostial stenosis noted. Bilateral common, external, and internal iliac arteries are normal in course, calibre, and opacification. Solid abdominal organs including the liver, spleen, pancreas, and bilateral kidneys reveal no significant abnormality. Bowel loops are grossly unremarkable. No evidence of ascites. IMPRESSION: Slightly hyperattenuating fluid collection (HU around 40) is noted involving the bilateral paracolic gutters and in the pelvis, predominantly in the pouch of Freddy, suggestive of hemoperitoneum. New finding. Diffuse atherosclerotic calcification is noted involving the aorta and iliac arteries. Stable. I personally reviewed ct scan images and concur with above findings
[2025-01-17] MEDS: PANTOprazole 40 MG/10 ML SYR IV SCH (12:14)
--- NOTE | 2025-01-17 13:06 | Gastrointestinal Consultation ---
Date of Consultation January 17, 2025 Assessment & Plan (1) Hemoperitoneum: Pleasant woman with a post procedure hemoperitoneum. This is unusual and, in fact, I have never had this as a procedural complication. At this time she seems stable and we can only observe her. Blood in the peritoneum is very painful so I am not surprised she has pain. This will resolve as the blood is reabsorbed. I will follow with you History of Present Illness Reason for Consultation: pain after colonoscopy Attending Physician: Jean-Claude Hammond MD History of Present Illness 69 year old female whom I did a colonoscopy on yesterday for rectal bleeding. It was normal, easy to do and uneventful. Afterwards she had significant pain and hypotension but never had tachycardia. She was seen in the ED yesterday and had a CT which showed hemoperitoneum with an acceptable hemoglobin. It was recommended she stay for observation but she chose to go home. She returned last night because of bloating. Her pain was the same but her bloating started after eating. She had a CTA today which showed the hemoperitoneum but no active bleeding. Hemoglobin today has dropped to 8.6. Her pain persists but has not worsened. Allergies Allergy/AdvReac Type Severity Reaction Status Date / Time hornet venom Allergy Severe ANAPHYLAXIS, Verified 01/16/25 23:49 hives bee venom protein (honey bee) Allergy Intermediate HIVES, Verified 01/16/25 23:49 YELLOW JACKETS Allergy Severe Anaphylaxis Uncoded 01/16/25 23:49 /Hives Home Medications Medication Instructions Recorded Confirmed Type [id number] 8 mg-folic 400 1 tab PO DAILY 10/07/21 01/16/25 History mcg-K 50 mcg-lutein 300 mcg tablet (Multivitamin Women 50 Plus) ascorbic acid (vitamin C) 1,000 mg 1,000 mg PO DAILY PRN WHEN NEEDED 01/16/25 01/16/25 History tablet (Vitamin C) epinephrine 0.3 mg/0.3 mL 0.3 mg IM DIRECTED PRN allergic 01/16/25 01/16/25 History injection, auto-injector (EpiPen reaction 2-Marc) Patient History Medical History Palpitations hx of > no more issues Arthritis History of COVID-26 October 2021 Surgical History History of breast biopsy benign [place] teeth extracted H/O colonoscopy S/P arthroscopy of shoulder (~2014) Rotator cuff surgery > right S/P tonsillectomy Family History Other No family history of adverse response to anesthesia No family history of bleeding disorder Social History Smoking Status: Never smoker Second Hand Exposure: No; Do You Dip or Chew Tobacco: No; Tobacco Cessation Education Requested by Patient: No Hx Alcohol Use: No Hx Substance Use: No Preferred Language: Occitan Communication Ability: Effective Penal Officer Required: No Beliefs That Will Affect Care: None marital status: Current Living Situation: Spouse current occupational status: retired How many Children do You have: 2 Other Information That Helps Us Care for You: No Feels Safe at Home: Yes Safety Concerns: Feels Safe At This Time Diet: vegetarian Diet Comment: Lean meat and fisth during the past year weight has: remained stable Assistive Devices: Glasses Review of Systems Review of Systems: All systems reviewed & are unremarkable except as noted in HPI & below Physical Exam Physical Exam: She looks well Constitutional: WD/WN, vitals as above Neck: trachea midline, no thyromegaly Respiratory: normal respiratory effort, lungs clear to auscultation Cardiovascular: RRR, no murmur, no edema Gastrointestinal (Abdomen): normal bowel sounds, soft, nontender, no hepatosplenomegaly Results & Data Vital Signs (Past 12 Hours) Vital Signs Temp Pulse Pulse Resp BP BP BP 01/17/25 11:36 36.6 C 69 16 107/58 L 01/17/25 11:13 01/17/25 10:26 71 16 130/87 01/17/25 09:50 65 16 132/68 01/17/25 08:00 63 18 134/79 01/17/25 06:57 63 18 114/67 01/17/25 05:10 64 01/17/25 05:00 65 19 114/62 01/17/25 03:32 66 110/68 01/17/25 02:00 77 16 111/57 L Pulse Ox Pulse Ox O2 Del Method O2 Del Method 01/17/25 11:36 99 Room Air 01/17/25 11:13 99 Room Air 01/17/25 10:26 99 Room Air 01/17/25 09:50 99 Room Air 01/17/25 08:00 98 Room Air 01/17/25 06:57 97 Room Air 01/17/25 05:10 01/17/25 05:00 96 Room Air 01/17/25 03:32 01/17/25 02:00 96 Room Air Laboratory Results 01/17/25 01/16/25 01/16/25 Range/Units 09:43 23:23 23:03 WBC 6.88 (4.8-10.8) K/ul RBC 3.28 L (4.20-5.40) M/uL Hgb 8.6 L 10.2 L (12.0-16.0) g/dl Hct 27.0 L 30.2 L (37.0-47.0) % MCV 92.1 (80.0-100.0) fL MCH 31.1 (25.0-34.0) pg MCHC 33.8 (32.0-36.0) g/dL RDW Std Deviation 44.8 (36.4-46.3) fL RDW Coeff of Megan 13.2 (11.5-14.5) % Plt Count 232 (130-400) K/uL MPV 9.0 L (9.4-12.4) fL Immature Gran % (Auto) 0.1 % Neut % (Auto) 57.5 % Lymph % (Auto) 34.3 % [place] % (Auto) 6.8 % Eos % (Auto) 1.0 % Baso % (Auto) 0.3 % Neut # (Auto) 3.95 (1.40-6.50) K/uL Lymph # (Auto) 2.36 (1.20-3.40) K/uL [place] # (Auto) 0.47 (0.11-0.59) K/uL Eos # (Auto) 0.07 (0.00-0.50) K/uL Baso # (Auto) 0.02 (0.00-0.20) K/uL Immature Gran # (Auto) 0.01 (0.01-0.20) K/uL PT 10.5 (9.0-12.0) Seconds INR 1.0 (0.9-1.1) Sodium 138 138 (136-145) mmol/L Potassium 4.2 3.8 (3.5-5.1) mmol/L Chloride 109 H 106 (98-107) mmol/L Carbon Dioxide 24 25 (21-32) mmol/L Anion Gap 5 7 (3-11) BUN 7 11 (6-23) mg/dl Creatinine 0.74 0.78 (0.6-1.2) mg/dl Est Cr Clr Drug Dosing 56.7 53.8 ml/min eGFR 87.53 82.17 BUN/Creatinine Ratio 9.5 L 14.1 (10-20) Glucose 89 95 (70-99(Fasting)) mg/dl Calcium 8.3 L 8.7 (8.6-10.3) mg/dl Total Bilirubin 0.4 (0.2-1.0) mg/dl AST 15 (13-39) U/L ALT 10 (7-52) U/L Alkaline Phosphatase 37 (34-104) U/L Troponin I High Sens 3.4 (0-14) pg/ml Total Protein 6.4 (6.0-8.3) gm/dl Albumin 4.0 (3.4-5.0) gm/dl Globulin 2.4 L (2.5-4.0) gm/dl Albumin/Globulin Ratio 1.7 (0.9-2) Lipase 36 (11-82) U/L Blood Type A Positive Antibody Screen NEGATIVE Diagnostic Findings KUB X-Ray 01/16/25 23:00 Exam(s): XR KUB EXAM: XR Abdomen, 1 View CLINICAL HISTORY: Reason for exam: eval for pneumoperitoneum. TECHNIQUE: Frontal view of abdomen/pelvis. COMPARISON: No relevant prior studies available. FINDINGS: Intraperitoneal space: No free air. Gastrointestinal tract: Few colonic diverticuli. Wall contrast is seen within the colon. No dilation. Bones/joints: Unremarkable. No acute fracture. IMPRESSION: No acute findings in the abdomen/pelvis Electronically signed by: Alejo Hubbard MD 01/17/25 00:05 AM Abdomen/Pelvis CTA 01/17/25 04:10 EXAM: CT angio abdomen pelvis w con CLINICAL HISTORY: hemoperitoneum post colonoscopy on CT done 01/16 TECHNIQUE: Contrast-enhanced thin-slice CT angiography scan of the abdominal aorta was performed with intravenous contrast. Angiographic images were processed, and 3D MIP images were acquired for interpretation. Contiguous axial images were obtained. Reformatted coronal and sagittal images were also reviewed. If intravenous contrast material had not been administered, the likelihood of detecting abnormalities relevant to the patient's condition would have been substantially decreased. The CT scan was performed according to ALARA (as low as reasonably achievable) principles. 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 FINDINGS: Slightly hyperattenuating fluid collection (HU around 40) is noted involving the bilateral paracolic gutters and in the pelvis, predominantly in the pouch of Freddy, suggestive of hemoperitoneum. Diffuse atherosclerotic calcification is noted involving the aorta and iliac arteries. The abdominal aorta is normal in course, calibre, and opacification. The origins of the coeliac artery, superior mesenteric artery, bilateral main renal, and lumbar arteries are normal, with no hemodynamically significant ostial stenosis noted. Bilateral common, external, and internal iliac arteries are normal in course, calibre, and opacification. Solid abdominal organs including the liver, spleen, pancreas, and bilateral kidneys reveal no significant abnormality. Bowel loops are grossly unremarkable. No evidence of ascites. IMPRESSION: Slightly hyperattenuating fluid collection (HU around 40) is noted involving the bilateral paracolic gutters and in the pelvis, predominantly in the pouch of Freddy, suggestive of hemoperitoneum. New finding. Diffuse atherosclerotic calcification is noted involving the aorta and iliac arteries. Stable. No obvious extravasation of contrast or active bleed is seen. Electronically signed by Adarsh Garcia 01-17-2025 05:44 AM
[2025-01-17] MEDS ORDERED: 4.5GM X1 IV STA (13:25)
--- NOTE | 2025-01-17 13:28 | Electrocardiogram Report ---
Test Reason : Blood Pressure : */* mmHG Vent. Rate : 66 BPM Atrial Rate : 66 BPM P-R Int : 160 ms QRS Dur : 88 ms QT Int : 396 ms P-R-T Axes : 78 59 62 degrees QTcB Int : 415 ms Normal sinus rhythm Normal ECG When compared with ECG of 05-Jan-2025 14:11, QT has shortened Confirmed by Geovanni Jorge ([id number]) on 01/17/2025 1:28:10 PM Referred By: REFERRED SELF Confirmed By: Geovanni Jorge
[2025-01-17 17:28] LABS: Hematocrit (blood only) 29.9 % (37.0-47.0); Hemoglobin 9.9 g/dl (12.0-16.0)
[2025-01-17 23:09] LABS: Hematocrit (blood only) 27.0 % (37.0-47.0); Hemoglobin 8.8 g/dl (12.0-16.0)
[2025-01-18 04:15] VITALS: RESP 16
[2025-01-18 06:49] LABS: Hematocrit (blood only) 25.8 % (37.0-47.0); Hemoglobin 8.7 g/dl (12.0-16.0); Immature Granulocytes # (auto) 0.00 K/uL (0.01-0.20); Immature Granulocytes % (auto) 0.0 %; Mean Corpuscular Hemoglobin 31.1 pg (25.0-34.0); Mean Corpuscular Volume 92.1 fL (80.0-100.0); Platelet Count 179 K/uL (130-400); RDW Standard Deviation 43.0 fL (36.4-46.3); Red Blood Count 2.80 M/uL (4.20-5.40); White Blood Count 3.36 K/ul (4.8-10.8)
[2025-01-18 07:14] LABS: Anion Gap 5.0 (3-11); Blood Urea Nitrogen 5.0 mg/dl (6-23); Calcium 8.1 mg/dl (8.6-10.3); Carbon Dioxide 23.0 mmol/L (21-32); Chloride 111.0 mmol/L (98-107); Creatinine Clr Calc Pharmacy 71.2 ml/min; Glucose 69.0 mg/dl (70-99(Fasting)); Magnesium 1.9 mg/dl (1.7-2.4); Potassium 4.2 mmol/L (3.5-5.1); Sodium 139.0 mmol/L (136-145)
[2025-01-18 07:23] LABS: INR 1.0 (0.9-1.1); Partial Thromboplastin Time 27 Seconds (21-31); Prothrombin Time 10.8 Seconds (9.0-12.0)
--- NOTE | 2025-01-18 07:45 | Discharge Summary ---
Discharge Summary Date of Service January 18, 2025 Principal Dx & Hospital Course #1 = Principal Diagnosis (1) Hemoperitoneum: (2) Abdominal pain: Plan The patient is a 69-year-old female with a past medical history including TMJ arthritis, left rotator cuff tear, and history of allergic reaction.The patient is a 69-year-old female underwent colonoscopy earlier in the morning on 01/16. She reports that when she awoke from the procedure she had significant left lower quadrant pain, and was told the emergency department for evaluation. At that visit she had a CT scanning of abdomen pelvis which showed a small to moderate hemoperitoneum with source most likely in the left mid colon. She reports that at that time it was recommended that she be admitted, however, she felt that if the only process that was going to be done would be to check her blood counts, that she would go home and rest. She therefore was discharged AGAINST MEDICAL ADVICE. Throughout the day on 01/16, the patient continued to have pain, which became slowly more intense and she had more of a sense of fullness develop in the left side and left lower pelvis area. Due to worsening symptoms she presented to the emergency department on the evening of 01/16 and morning of 01/17. She was ordered a KUB by the emergency department, which showed no significant issues. She had laboratories performed that showed stable hemoglobin of 10.2, which had been 10.1 earlier in the morning. She appeared very dehydrated in the ED this evening, likely her hemoglobin is more hemoconcentrated, and is likely lower than 10.2. Her baseline hemoglobin was 11.8 on 01/05/2025. From the ED she received a 1 L normal saline bolus, and Tylenol 1 g p.o. she was placed on empiric Zosyn pending reevaluation, and follow-up CTs were ordered which did not show active extravasation/evidence of perforation or free air but which did show intraperitoneal hematoma. Hemoglobin level stabilized approximately 8.79, she has a history of iron deficiency and although was not macrocytic was evaluated and treated with Venofer To do as outpatient: 1. Repeat CBC within 1 week by PCP 2. Routine follow-up to PCP 3. Follow-up to GI, routine 4. Return precautions were discussed with Svitlana. Her hemodynamics were stable at discharge and her blood levels were stable however concerning symptoms include worsening pain, lightheadedness/dizziness, rising tachycardia, hypoten ranjana or other concerning new symptoms were reviewed and she is agreeable to present for reevaluation should these occur. Her daughter in law Sunni is a surgeon in [place] who was updated by phone day of discharge, expressed appreciation of care and in agreement with plan and return precautions. Hemoperitoneum/status post colonoscopy/anemia- - CTA/P 01/16L 11 x 6.6 x 2.7 cm elongated left abdominal hyperdense fluid collection, likely intraperitoneal, located along the medial aspect of the descending colon. This represents a hematoma without seen active extravasation. Although nonspecific, this could be related to underlying mesenteric injury given the location. Moderate amount of hemoperitoneum within the pelvis. Overall small to moderate hemoperitoneum within the abdomen and pelvis. Source most likely within the left mid abdomen. -CTA-A/P 01/17: Slghtly hyperattenuating fluid collection involving the bilateral paracolic gutters and in the pelvis, predominantly in the pouch of Oxana glas, suggestive of hemoperitoneum. New finding. Diffuse atherosclerotic calcifications noted involving the aorta and iliac arteries. Stable. No - obvious extravasation of contrast or active bleed seen. Pending comparison to initial CT scan She did receive contrast with her initial CT scan. No evidence of bowel perforation/free air. Zosyn discontinued. She does not show signs of an acute abdomen at reassessment Tylenol 1 g every 8 hours, breakthrough morphine for pain NSS+ KCl 100 cc/h BC pending. She does not appear febrile or toxic Colonoscopy was performed at [facility]. No polyp removal, otherwise uncomplicated at the time. No active extravasation on CT scan repeat She is not tachycardic Will trend H&H to ensure that this is stable/uptrending. If no recurrent pain, hemoglobin stable/uptrending, hemodynamically stable can possibly progress home when stable and should have gradually improving pain as blood is resorb. Otherwise and if there is concern for any active or intermittent ongoing bleed is recommended for transfer for IR evaluation at that time. If hemoglobin is stable/uptrending can advance to clears Surgery consulted and following. No indication for surgical intervention at this time. Will continue to follow. Appreciate recommendations GI consulted and following. Slight initial fluctuation of her hemoglobin however overall has been stable at approximately 8.79. 01/18 she continues to feel well with no peritoneal signs, and is able to ambulate with a normal heart rate no lightheadedness/dizziness/inappropriate tachycardia. Blood pressure does intermittently run low in the low 100s/high 90s. She reports this is baseline. Prior to discharge she was ambulated around the hallway x 3, her pulse remained stable in no higher than the 80s, and was normotensive on reassessment. Was tolerating regular diet well and asymptomatic. History of iron deficiency She is not microcytic but reports that she does not really eat any meat with her diet and has received IV infusions for iron deficiency in the past. Last infusion was many years ago Ferritin/iron panel pending Would benefit from at least 1 dose of Venofer Venofer 400 mg x 1 Will continue folic acid/B12 supplementation for recovery erythropoetic support Admission HPI Per Admitting Provider The patient is a 69-year-old female with a past medical history including TMJ arthritis, left rotator cuff tear, and history of allergic reaction.The patient is a 69-year-old female underwent colonoscopy earlier in the morning on 01/16. She reports that when she awoke from the procedure she had significant left lower quadrant pain, and was told the emergency department for evaluation. At that visit she had a CT scanning of abdomen pelvis which showed a small to moderate hemoperitoneum with source most likely in the left mid colon. She reports that at that time it was recommended that she be admitted, however, she felt that if the only process that was going to be done would be to check her blood counts, that she would go home and rest. She therefore was discharged AGA INST MEDICAL ADVICE. Throughout the day on 01/16, the patient continued to have pain, which became slowly more intense and she had more of a sense of fullness develop in the left side and left lower pelvis area. Due to worsening symptoms she presented to the emergency department on the evening of 01/16 and morning of 01/17. She was ordered a KUB by the emergency department, which showed no significant issues. She had laboratories performed that showed stable hemoglobin of 10.2, which had been 10.1 earlier in the morning. She appears very dehydrated in the ED this evening, likely her hemoglobin is more hemoconcentrated, and is likely lower at 10.2. Her baseline hemoglobin was 11.8 on 01/05/2025. From the ED she received a 1 L normal saline bolus, Tylenol 1 g p.o. I advised that she be placed on Zosyn 4.5 g IV while additional workup could be performed due to the persistence and intensification of her left lower quadrant discomfort. Discharge Exam General: A&Ox3. NAD. Cooperative. HEENT: Atraumatic, normocephalic. Vision and hearing grossly intact Pulm: CTAB A&P. -wheezes, -rales, -rhonchi. Symmetrical chest rise. No increase in work of breathing. No respiratory distress. Cardiac: RRR, -mrg. Radial pulses intact and symmetrical. Abdominal: Mildly tender to palpation in the left lower quadrant, similar to slightly improved from prior in abdomen otherwise soft and nontender. No rebound/guarding. Abdomen is not rigid. Discharge Plan Discharge Items Patient Disposition: Home - Self-Care Reason For Visit: HEMOPERITONEUM POST COLONOSCOPY, ANEMIA, ABDOMINAL Discharge Diagnosis: Hemoperitoneum, vascular injury without evidence of bowel perforation Condition on Discharge: Fair Activity: Resume your previous activity Non-emergency contact: Primary Care Provider and Film Printer Call non-emergency contact if: you have any medication questions, your symptoms worsen and your pain is not controlled Follow-up/Referrals: Miah Canas Jr, MD [Physician] - Milagros Michaels DO [Primary Care Provider] - Diet: Regular Addtl Attending Provider Instructions: You are seen in the hospital for hemoperitoneum, bleeding in the abdominal cavity. This occurred after your colonoscopy. Your CAT scans did not show any free air or contrast leak suggestive of a bowel injury/tear. You were evaluated by general surgery, GI, and admitted to the hospitalist service. It was suspected that you had a vascular injury which bled and occurred without perforation. You did show blood in your abdominal cavity on your CT scans however a repeat CT angiography of your abdomen did not show any active bleeding, your blood pressure and heart rate remained stable, and your blood levels stabilized around 8.79. You were treated for iron deficiency and received Venofer 400 mg x 1 while in the hospital. Please discuss iron deficiency further with your primary care doctor at follow You have been prescribed a folic acid and B12 supplement to help promote blood cell recovery. Please follow-up with your primary care doctor within 1 week and you should have a CBC (blood levels) checked to ensure stability within approximately 1 week Blood can be irritating to the abdominal cavity and you may have some achy pain which should gradually recover. While you may have good and bad moments the average discomfort over 2-3 days should gradually improved compared to the average the 2 to 3 days prior. If you have any significantly worsening pain, or you notice that your overall pain seems to be worsening please seek medical reattention. If you develop any new or worsening symptoms including fever, chills, sweats, chest pain, chest pressure, difficulty breathing, uncontrolled nausea/vomiting, rash, wheezing, passing out or nearly passing out, bleeding, black/bloody bowel movements, or other new or concerning symptoms please call your primary care physician, or call 911 for re-evaluation in the emergency department if you are very concerned. Pending Studies at Discharge: No Stand-Alone Forms: My [facility] Construct, Smoking Cessation Medications and DC Order Prescriptions: New cyanocobalamin (vitamin B-12) [Vitamin B-12] 100 mcg Tablet 100 mcg PO QAM Qty: 30 0RF folic acid 1 mg Tablet 1 mg PO QAM Qty: 30 0RF Continued Multivitamin Women 50 Plus 8 mg iron-400 mcg-300 mcg tablet 1 tab PO DAILY ascorbic acid (vitamin C) [Vitamin C] 1,000 mg Tablet 1,000 mg PO DAILY PRN (Reason: WHEN NEEDED ) Rx Instructions: TAKES WHEN "FEELING RUN DOWN". epinephrine [EpiPen 2-Marc] 0.3 mg/0.3 mL auto-injector 0.3 mg IM DIRECTED PRN (Reason: allergic reaction) Rx Instructions: until response Discharge Orders: Discharge Order (Routine); Ordered 01/18/25 Ordered By: Amol Eckert Admission Data Admit Date/Time: 01/17/25 06:43 Attending Provider: Amol Eckert Admit Provider: Jean-Claude Hammond Primary Care Provider: Milagros Michaels Other Providers: Miah Canas Jr; Jean-Claude Hammond; Aftab Wu Other Interventions: Discharge Summary Assessment (RN) Last Done: 01/18/25 14:10 Hospital Stay Data Consultations 01/17/25 03:28 Consult Gastroenterology Routine 01/17/25 03:36 ED Decision to Admit Stat 01/17/25 04:13 Consult General Surgery Stat Diagnostic Imagining Performed 01/17/25 04:10 CTA abdomen pelvis w con [CT angio abdomen pelvis w con] Stat Discharge Instructions Given to Patient (Per Discharging Provider) You are seen in the hospital for hemoperitoneum, bleeding in the abdominal cavity. This occurred after your colonoscopy. Your CAT scans did not show any free air or contrast leak suggestive of a bowel injury/tear. You were evaluated by general surgery, GI, and admitted to the hospitalist service. It was suspected that you had a vascular injury which bled and occurred without perforation. You did show blood in your abdominal cavity on your CT scans however a repeat CT angiography of your abdomen did not show any active bleeding, your blood pressure and heart rate remained stable, and your blood levels stabilized around 8.79. You were treated for iron deficiency and received Venofer 400 mg x 1 while in the hospital. Please discuss iron deficiency further with your primary care doctor at follow You have been prescribed a folic acid and B12 supplement to help promote blood cell recovery. Please follow-up with your primary care doctor within 1 week and you should have a CBC (blood levels) checked to ensure stability within approximately 1 week Blood can be irritating to the abdominal cavity and you may have some achy pain which should gradually recover. While you may have good and bad moments the average discomfort over 2-3 days should gradually improved compared to the average the 2 to 3 days prior. If you have any significantly worsening pain, or you notice that your overall pain seems to be worsening please seek medical reattention. If you develop any new or worsening symptoms including fever, chills, sweats, chest pain, chest pressure, difficulty breathing, uncontrolled nausea/vomiting, rash, wheezing, passing out or nearly passing out, bleeding, black/bloody bowel movements, or other new or concerning symptoms please call your primary care physician, or call 911 for re-evaluation in the emergency department if you are very concerned. Total Time Total Time Spent Total Time Spent (In Minutes): Time spend day of discharge 40 minutes including direct patient care, documentation, review of labs and images, and coordination of care. Coding Level of Care Code 31110 INP/OBS DISCH >30 MIN Diagnoses Hemoperitoneum K66.1 Abdominal pain R10.9
[2025-01-18 08:13] LABS: Iron 36.0 mcg/dl (35-150); Total Iron Binding Cap Calc 241.0 mcg/dl (250-450); Transferrin 172.0 mg/dl (200-360); Transferrin (FE) Percent Satur 15.0 % (15-50)
[2025-01-18 08:32] LABS: Ferritin 102.3 ng/ml (8-388)
[2025-01-18] MEDS: IRON SUCROSE 300 MG in SODIUM CHLORIDE 0.9% 250 ML IV ONE (09:54)
[2025-01-18] MEDS: CYANOCOBALAMIN (B-12) 100 MCG TABLET PO SCH (10:09)
[2025-01-18] MEDS: FOLIC ACID 1 MG TAB PO SCH (10:09)
[2025-01-18] MEDS: LACTATED RINGER'S 500 ML IV ONE (11:34)
[2025-01-18 11:47] VITALS: TEMP 98.2; O2SAT 97
[2025-01-18 14:10] VITALS: BP 119/73
[2025-01-18 14:16] VITALS: PULSE 74
== END 2025-01-18 14:30 | disposition home or self-care (01) | DRG 919 ==
LOC: SUATTDRO → ED 22:02 → SUATTDRO 01-17 06:43 → 2W 01-17 06:43